=== PATIENT | female | born 1960 | race Caucasian/White ===

== ENCOUNTER 2017-04-01 20:19 | Day surgery (SDC) | payer OTHER ==
[~2017-04-01] VITALS: Ht 165.1 cm; Wt 76.6 kg
[~2017-04-01 20:19] MED LIST: BACTRIM DS TABL1 TAB PO; CEFPROZIL500 MG; COCONUT OIL100 GM TOP; FLEXERIL10 MG PO; NO MEDICATIONS; NORCO 5/325 TAB1 TAB PO; PROBIOTIC1 EA10 PO; PROTANDIM PO; TRAMADOL HCL50 MG PO; [UNRECOGNIZED DRUG - OTHER]
[2017-04-01] MEDS ORDERED: IBUPROFEN600 M1 PO (21:18)
[2017-04-01] MEDS ORDERED: HYDROCODON-ACE1 EA16 PO (21:18)
[2017-04-01] MEDS ORDERED: AUGMENTIN 875-1 EAC2 PO (21:19)
[2017-04-02 00:22] LABS: BASO % 0.4 % (0-2); BASO ABSOLUTE COUNT 0.1 tho/cmm (0.0-0.2); EOS % 2.4 % (0-7); EOSINOPHIL ABSOLUTE COUNT 0.3 tho/cmm (0.0-0.7); HCT-HEMATOCRIT 43.2 % (34.0-49.0); HGB-HEMOGLOBIN 14.4 gm/dl (12.0-15.5); IMMATURE GRANULOCYTES ABSOLUTE 0.03 tho/cmm (0-0.03); IMMATURE GRANULOCYTES PERCENT 0.2 % (0-0.3); LYMPH % 20.8 % (20-45); LYMPH ABSOLUTE COUNT 2.7 tho/cmm (0.8-4.5); MCH (MEAN CORPUSCULAR HGB) 30.5 pg (28.0-32.0); MCHC MEAN CORPUSCULAR HGB CONC 33.3 % (32.0-36.0); MCV (MEAN CELL VOLUME) 91.5 fl (82.0-96.0); MEAN PLATELET VOLUME 9.8 cmc (9.4-12.4); MONO % 7.8 % (0-12); NEUTROPHIL ABSOLUTE COUNT 8.9 tho/cmm (1.6-8.0); NEUTROPHIL-AUTOMATED 8.9 tho/cmm (1.6-8.0); NEUTROPHILS % 68.4 % (40-80); PLATELET COUNT 378 tho/cmm (150-450); RED BLOOD COUNT 4.72 mil/cmm (4.00-5.20); RED CELL DISTRIBUTION WIDTH 13.1 % (12.4-16.4); WHITE BLOOD COUNT 13.1 tho/cmm (4.0-10.0)
[2017-04-02 00:37] LABS: ANION GAP 9 mmol/L (0-20); BLOOD UREA NITROGEN 9 mg/dl (6-24); C-REACTIVE PROTEIN 17.3 mg/dl (0-0.9); CALCIUM 9.3 mg/dl (8.5-10.5); CARBON DIOXIDE-VENOUS 28 mmol/L (22-32); CHLORIDE 103 mmol/l (96-110); CREATININE 0.88 mg/dl (0.50-1.10); GLUCOSE 74 mg/dL (70-110); POTASSIUM 4.3 mmol/L (3.7-5.1); SODIUM 136 mmol/L (135-145); eGFR VALUE FOR BLACK 86 mL/Min
[2017-04-02 00:55] LABS: PROCALCITONIN 0.07 ng/ml (0.05-0.09)
[2017-04-02] MEDS ORDERED: ULTRAM50 M1 PO (11:23)
[2017-04-02] MEDS ORDERED: NORCO 5-325 TA1 EACH PO (11:25)
[2017-04-02] MEDS ORDERED: IBUPROFEN600 M1 PO (11:26)
[2017-04-02] MEDS ORDERED: REXULTI1 MG PO (11:34)
[2017-04-02] MEDS ORDERED: FLUOXETINE HCL20 M2 PO (11:35)
[2017-04-02] MEDS ORDERED: STRATTERA40 MG/CAP PO (11:36)
[2017-04-02] MEDS ORDERED: ESTRACE0.5 M2 PO (11:37)
[2017-04-02] MEDS ORDERED: PROVERA5 M1 PO (11:38)
[2017-04-03 06:52] LABS: BASO % 0.1 % (0-2); HCT-HEMATOCRIT 38.7 % (34.0-49.0); HGB-HEMOGLOBIN 12.8 gm/dl (12.0-15.5); IMMATURE GRANULOCYTES ABSOLUTE 0.03 tho/cmm (0-0.03); IMMATURE GRANULOCYTES PERCENT 0.2 % (0-0.3); LYMPH % 6.6 % (20-45); LYMPH ABSOLUTE COUNT 0.9 tho/cmm (0.8-4.5); MCH (MEAN CORPUSCULAR HGB) 29.8 pg (28.0-32.0); MCHC MEAN CORPUSCULAR HGB CONC 33.1 % (32.0-36.0); MEAN PLATELET VOLUME 9.2 cmc (9.4-12.4); MONO % 1.6 % (0-12); MONOCYTE ABSOLUTE COUNT 0.2 tho/cmm (0.0-1.2); NEUTROPHIL ABSOLUTE COUNT 11.8 tho/cmm (1.6-8.0); NEUTROPHIL-AUTOMATED 11.8 tho/cmm (1.6-8.0); NEUTROPHILS % 91.5 % (40-80); PLATELET COUNT 356 tho/cmm (150-450); RED CELL DISTRIBUTION WIDTH 13.1 % (12.4-16.4); WHITE BLOOD COUNT 12.8 tho/cmm (4.0-10.0)
[2017-04-03] MEDS ORDERED: HYDROCODON-ACE1 EA16 PO (12:57)
== END 2017-04-03 13:45 ==
LOC: EDMED 20:19 → SRG 04-02 00:40 → EDMED 04-02 00:40 → 5WF 04-02 00:40 → EMR2 04-02 00:40 → 5WF 04-02 02:10 → EMR2 04-02 02:10 → 5WF 04-02 02:10 → ORE 04-02 21:45 → 5WF 04-02 21:45 → ORE 04-02 21:45 → PACU 04-02 22:59 → ORE 04-02 22:59 → PACU 04-02 22:59 → 5WF 04-02 23:46 → PACU 04-02 23:46 → 5WF 04-03 13:45 → SRG 04-03 13:45
PROVIDERS: Internal Medicine
PROC: 0H94XZZ Drainage of Neck Skin, External Approach (ICD-10-PCS; principal; 2017-04-01)
DX: L02.11 Cutaneous abscess of neck (principal); I10 Essential (primary) hypertension; F17.210 Nicotine dependence, cigarettes, uncomplicated; G89.29 Other chronic pain; Z98.818 Other dental procedure status
CPT/HCPCS: G0378; J0295; J1170; J2270; J3010; J7030; J7050